=== PATIENT | male | born 1985 | race Caucasian/White ===

== ENCOUNTER 2024-08-04 19:48 | Emergency (ER) | payer OTHER ==
[~2024-08-04] VITALS: Ht 190.5 cm; Wt 136.1 kg
[~2024-08-04 19:48] MED LIST: DIAZ5 PO; HYDACE5 PO; HYDR1TAB94 PO; NAPR500 PO; PRED10 PO; RXCODACET PO; RXERYTOPTH OS; RXHYD5325 PO
[2024-08-04 19:56] VITALS: BP 169/123
[2024-08-04] MEDS ORDERED: Diphth,Pertuss(Acell),Tet Vac 0.5 ML VIAL IM ONE (20:10)
[2024-08-04] MEDS ORDERED: AMOCLA875 PO (23:01)
== END 2024-08-04 23:08 | disposition home or self-care (01) ==
LOC: ER 19:48
DX: S01.112A Laceration without foreign body of left eyelid and periocular area, initial encounter (principal); F17.200 Nicotine dependence, unspecified, uncomplicated; Z23 Encounter for immunization; Z79.1 Long term (current) use of non-steroidal anti-inflammatories (NSAID); Z79.899 Other long term (current) drug therapy; Z59.89 Other problems related to housing and economic circumstances; W20.8XXA Other cause of strike by thrown, projected or falling object, initial encounter
CPT/HCPCS: 12011; 90471; 90715; 99282-25